=== PATIENT | male | born 1970 | race Asian ===

== ENCOUNTER 2016-10-21 19:58 | Inpatient (IN) | payer OTHER ==
[~2016-10-21] VITALS: Ht 165.1 cm; Wt 67.3 kg
[2016-10-21 21:22] LABS: BASOPHIL % 0.8 % (0-2); PLATELET COUNT 276 x10^3mcL (130-400)
[2016-10-21 21:34] LABS: CARBON DIOXIDE 29.1 mmol/L (21-32); CHLORIDE SERUM 103 mmol/L (98-107); CREATININE SERUM 1.1 mg/dL (0.7-1.3); GFR1 > 60 mL/min; GLUCOSE SERUM 124 mg/dL (74-106); POTASSIUM SERUM 4.4 mmol/L (3.5-5.1); SODIUM SERUM 141 mmol/L (136-145)
[2016-10-21 21:42] LABS: ALBUMIN 3.8 g/dL (3.4-5.0); ALKALINE PHOSPHATASE 53 U/L (46-116); ALT/SGPT 69 U/L (16-63); AST/SGOT 37 U/L (15-37); BILIRUBIN TOTAL 0.23 mg/dL (0.20-1.00)
[2016-10-21 22:05] LABS: CK-MB < 0.5 ng/mL (0-3.6); CREATINE KINASE 90 U/L (39-308)
[2016-10-21] MEDS ORDERED: ATENOLOL25 MG PO (22:26)
[2016-10-21] MEDS ORDERED: LOSARTAN POTASS50 M1 PO (22:27)
[2016-10-21 23:50] VITALS: BP 134/84
[2016-10-22 02:42] LABS: CHOLESTEROL/HDL RATIO 4.4; MAGNESIUM 2.1 mg/dL (1.8-2.4); PHOSPHOROUS 3.4 mg/dL (2.5-4.9)
[2016-10-22 03:01] LABS: FREE T4 0.85 ng/dL (0.76-1.46); FREE THYROXINE INDEX 2.3 ug/dL (1.4-4.5); T4(THYROXINE) 6.2 ug/dL (4.7-13.3)
[2016-10-22 03:07] LABS: T3 TOTAL 0.99 ng/mL
[2016-10-22 03:55] LABS: microscopic required? NO
[2016-10-22 04:03] LABS: UA SPECIFIC GRAVITY <=1.005 (1.005-1.035); urine erythrocyte NEGATIVE (NEGATIVE)
[2016-10-22 04:17] LABS: AMPHETAMINE QUAL UR NONE DETECTED (NEG <=1000)
[2016-10-22 05:18] VITALS: BP 96/60
[2016-10-22 07:31] LABS: BASOPHIL % 0.5 % (0-2); PLATELET COUNT 237 x10^3mcL (130-400)
[2016-10-22 07:44] LABS: RED CELL DISTRIBUTION WIDTH 14.9 % (11.5-14.5)
[2016-10-22 08:10] LABS: CALCIUM 8.4 mg/dL (8.5-10.1); CARBON DIOXIDE 26.1 mmol/L (21-32); CHLORIDE SERUM 108 mmol/L (98-107); GFR1 > 60 mL/min; GLUCOSE SERUM 94 mg/dL (74-106); POTASSIUM SERUM 4.6 mmol/L (3.5-5.1); SODIUM SERUM 142 mmol/L (136-145)
[2016-10-22 09:16] VITALS: BP 138/77
[2016-10-22 13:09] VITALS: BP 124/86
[2016-10-22] MEDS ORDERED: ECO81 PO (16:54)
[2016-10-22 17:00] VITALS: BP 124/86
[2016-10-22 17:14] VITALS: BP 145/79
== END 2016-10-22 19:41 | disposition home or self-care (01) | DRG 206 ==
LOC: ED 19:58 → DU 22:41
PROVIDERS: Emergency Medicine; ADMIT Family Medicine
DX: M94.0 Chondrocostal junction syndrome [Tietze] (principal); E78.00 Pure hypercholesterolemia, unspecified; R74.0 Nonspecific elevation of levels of transaminase and lactic acid dehydrogenase [LDH]; I10 Essential (primary) hypertension; Z79.82 Long term (current) use of aspirin; I16.0 Hypertensive urgency
CPT/HCPCS: 83880; 84439; J7030; Q0092